=== PATIENT | female | born 1960 | race African-American/Black ===

== ENCOUNTER 2019-11-24 16:57 | Emergency (ER) | payer OTHER ==
[~2019-11-24] VITALS: Ht 170.2 cm; Wt 95.3 kg
[~2019-11-24 16:57] MED LIST: IBUPROFEN 800800 M1 PO; IRON PO; REGLAN 10 MG TA10 MG PO; VICODIN 5-5001 EACH PO; ZOFRAN ODT4 MG PO
[2019-11-24] MEDS ORDERED: NORFLEX100 MG PO (17:42)
[2019-11-24] MEDS ORDERED: NAPROSYN500 MG PO (17:42)
[2019-11-24 17:49] VITALS: BP 131/80
== END 2019-11-24 17:49 | disposition home or self-care (01) ==
LOC: ER 16:57
DX: M43.6 Torticollis (principal); R20.2 Paresthesia of skin; Z90.710 Acquired absence of both cervix and uterus; Z88.1 Allergy status to other antibiotic agents